=== PATIENT | female | born 1995 | race African-American/Black ===

== ENCOUNTER 2017-01-05 03:13 | Emergency (ER) | payer OTHER ==
[~2017-01-05 03:13] MED LIST: /ACETCOD2T PO; No Historical Meds; PRENTAB74 PO
[2017-01-05 05:08] LABS: MEAN CORPUSCULAR HEMOGLOBIN 29.9 pg (27.0-33.0); MEAN CORPUSCULAR HGB CONC 32.2 g/dl (32.0-36.5); MEAN CORPUSCULAR VOLUME 92.9 fl (80.0-96.0); RED CELL DISTRIBUTION WIDTH 14.2 % (11.5-14.5); WHITE BLOOD COUNT 9.3 K/mm3 (4.0-10.0)
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
[2017-01-05 05:21] LABS: AMPHETAMINES LEVEL URINE POSITIVE (NEGATIVE); BENZODIAZEPINES URINE NEGATIVE (NEGATIVE); COCAINE METABOLITE URINE NEGATIVE (NEGATIVE); CONTROL LINE INT CTR LINE PRESENT; METHADONE URINE NEGATIVE (NEGATIVE); OPIATES URINE NEGATIVE (NEGATIVE); TRICYCLIC ANTIDEPRESS URINE NEGATIVE (NEGATIVE)
[2017-01-05 05:27] LABS: CONTROL LINE HCG INT CTR LINE PRESENT
[2017-01-05 05:43] LABS: ALBUMIN 4.2 GM/DL (3.2-5.2); ALBUMIN/GLOBULIN RATIO 1.14 (1.00-1.93); ALKALINE PHOSPHATASE 80 U/L (45-117); ALT/SGPT 23 U/L (12-78); ANION GAP 9 MEQ/L (8-16); AST/SGOT 17 U/L (15-37); BILIRUBIN,DIRECT < 0.1 MG/DL (0.0-0.2); BILIRUBIN,TOTAL 0.2 MG/DL (0.2-1.0); BLOOD UREA NITROGEN 4 MG/DL (7-18); CALCIUM LEVEL 9.1 MG/DL (8.5-10.1); CARBON DIOXIDE LEVEL 26 MEQ/L (21-32); CHLORIDE LEVEL 111 MEQ/L (98-107); GLOMERULAR FILTRATION RATE > 60.0 (>60); GLUCOSE, FASTING 111 MG/DL (70-105); POTASSIUM SERUM 4.1 MEQ/L (3.5-5.1); SODIUM LEVEL 146 MEQ/L (136-145); TOTAL PROTEIN 7.9 GM/DL (6.4-8.2)
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
== END 2017-01-05 07:27 | disposition home or self-care (01) ==
LOC: M ED 03:13
DX: S00.83XA Contusion of other part of head, initial encounter (principal); W50.0XXA Accidental hit or strike by another person, initial encounter; Y92.410 Unspecified street and highway as the place of occurrence of the external cause; Y93.89 Activity, other specified; Y99.8 Other external cause status; F19.10 Other psychoactive substance abuse, uncomplicated; R45.851 Suicidal ideations; G93.0 Cerebral cysts; N83.209 Unspecified ovarian cyst, unspecified side; L30.9 Dermatitis, unspecified; Z88.6 Allergy status to analgesic agent; F17.210 Nicotine dependence, cigarettes, uncomplicated
CPT/HCPCS: 36415; 70450; 70486; 80048; 80076; 80306; 84443; 84703; 85027; 99284; G0480

== ENCOUNTER 2017-02-19 11:53 | Emergency (ER) | payer OTHER ==
[~2017-02-19] VITALS: Ht 170.2 cm; Wt 92.1 kg
[2017-02-19] MEDS ORDERED: ONDANSETRON 4 MG ORAL DISINTEGRATING TAB (S0181) PO ONE ×2 (14:30→15:45)
[2017-02-19] MEDS ORDERED: NAPR500T PO (15:32)
[2017-02-19] MEDS ORDERED: ZOFR4TAB3 PO (15:33)
[2017-02-19] MEDS ORDERED: NAPROXEN 250 MG TAB PO ONE (15:45)
[2017-02-19 15:47] VITALS: BP 123/61
== END 2017-02-19 16:04 | disposition home or self-care (01) ==
LOC: M ED 14:59
DX: R10.2 Pelvic and perineal pain (principal); R11.0 Nausea

== ENCOUNTER 2017-06-09 14:08 | Emergency (ER) | payer OTHER ==
[~2017-06-09] VITALS: Ht 170.2 cm; Wt 90.0 kg
[~2017-06-09 14:08] MED LIST changes: +NAPR500T PO; +ZOFR4TAB3 PO
[2017-06-09] MEDS ORDERED: TYLE325T5 PO (17:21)
[2017-06-09 19:27] VITALS: BP 125/52
== END 2017-06-09 19:46 | disposition home or self-care (01) ==
LOC: M ED 14:08
DX: O03.9 Complete or unspecified spontaneous abortion without complication (principal)

== ENCOUNTER → 2017-06-10 | Outpatient (REF) | payer OTHER ==
[~2017-06-10] MED LIST changes: +TYLE325T5 PO
== END ==
LOC: M LAB REF 17:29
PROVIDERS: ATTEND Advanced Practice Midwife
DX: O36.80X0 Pregnancy with inconclusive fetal viability, not applicable or unspecified (principal)

== ENCOUNTER → 2017-06-14 | Outpatient (REF) | payer OTHER | LOC: M LAB REF 13:04 | PROVIDERS: ATTEND Advanced Practice Midwife | DX: O20.0 Threatened abortion (principal) ==

== ENCOUNTER → 2017-07-11 | Outpatient (REF) | payer OTHER | LOC: M WHC 17:11 | PROVIDERS: ATTEND Advanced Practice Midwife | DX: O36.80X0 Pregnancy with inconclusive fetal viability, not applicable or unspecified (principal) ==

== ENCOUNTER → 2017-07-16 | Outpatient (REF) | payer OTHER | LOC: M LAB REF 16:39 | PROVIDERS: ATTEND Advanced Practice Midwife | DX: O36.80X0 Pregnancy with inconclusive fetal viability, not applicable or unspecified (principal) ==

== ENCOUNTER → 2017-08-14 | Outpatient (REF) | payer OTHER ==
[2017-08-14 13:38] LABS: MEAN CORPUSCULAR HEMOGLOBIN 32.4 pg (27.0-33.0); MEAN CORPUSCULAR HGB CONC 34.8 g/dl (32.0-36.5); MEAN CORPUSCULAR VOLUME 93.3 fl (80.0-96.0); RED CELL DISTRIBUTION WIDTH 12.8 % (11.5-14.5); WHITE BLOOD COUNT 10.8 K/mm3 (4.0-10.0)
[2017-08-14 14:01] LABS: HCG, SERUM QUANTITATIVE 56085 MIU/ML
[2017-08-14 14:08] LABS: HBsAg Prenatal NEGATIVE (NEGATIVE)
[2017-08-21 15:21] LABS: SUMMARY SEE SEPARATE REPORT
== END ==
LOC: M LAB REF 09:32
PROVIDERS: ATTEND Advanced Practice Midwife
DX: O36.80X0 Pregnancy with inconclusive fetal viability, not applicable or unspecified (principal)

== ENCOUNTER 2017-09-09 19:24 | Emergency (ER) | payer OTHER ==
[~2017-09-09] VITALS: Ht 170.2 cm; Wt 96.1 kg
[2017-09-09 21:24] LABS: BASO % 0.2 % (0.0-1.0); EOS # 0.1 10^3/uL (0.0-0.50); EOS % 0.7 % (0.0-3.0); IMMATURE GRANULOCYTE % 0.4 % (0-0); LYMPH % 20.1 % (24.0-44.0); MEAN CORPUSCULAR HEMOGLOBIN 31.2 pg (27.0-33.0); MEAN CORPUSCULAR HGB CONC 33.9 g/dl (32.0-36.5); MONO # 0.8 10^3/uL (0.0-0.8); MONO % 5.6 % (0.0-5.0); NEUTROPHILS # 10.8 10^3/uL (1.8-7.7); PLATELET COUNT, AUTOMATED 280 10^3/uL (150-450); RED CELL DISTRIBUTION WIDTH 13.7 % (11.5-14.5); WHITE BLOOD COUNT 14.8 10^3/uL (4.0-10.0)
[2017-09-09 22:09] LABS: ALBUMIN 3.5 GM/DL (3.2-5.2); ALBUMIN/GLOBULIN RATIO 0.97 (1.00-1.93); ALKALINE PHOSPHATASE 40 U/L (45-117); ALT/SGPT 13 U/L (12-78); ANION GAP 10 MEQ/L (8-16); AST/SGOT 7 U/L (15-37); BILIRUBIN,DIRECT < 0.1 MG/DL (0.0-0.2); BILIRUBIN,TOTAL 0.1 MG/DL (0.2-1.0); BLOOD UREA NITROGEN 8 MG/DL (7-18); CALCIUM LEVEL 8.9 MG/DL (8.5-10.1); CARBON DIOXIDE LEVEL 23 MEQ/L (21-32); CHLORIDE LEVEL 105 MEQ/L (98-107); CREATININE FOR GFR 0.51 MG/DL (0.55-1.02); FREE T4 0.92 NG/DL (0.76-1.46); GLOMERULAR FILTRATION RATE > 60.0 (>60); GLUCOSE, FASTING 90 MG/DL (70-105); MAGNESIUM LEVEL 2.2 MG/DL (1.8-2.4); POTASSIUM SERUM 4.1 MEQ/L (3.5-5.1); SODIUM LEVEL 138 MEQ/L (136-145); TOTAL PROTEIN 7.1 GM/DL (6.4-8.2)
[2017-09-09 23:47] VITALS: BP 153/83
--- NOTE | 2017-09-10 00:52 | REP ---
Clinical: Chest pain and shortness of breath . Comparison: 01/30/2013 . Technique: PA. Findings: The mediastinum and cardiac silhouette are normal. The lung moses are clear and without acute consolidation, effusion, or pneumothorax. The skeletal structures are intact and normal. Impression: 1. No acute cardiopulmonary process. Signed by Cirilo Awad MD 09/10/2017 12:44 A
--- NOTE | 2017-09-10 05:47 | ECGEPIP ---
Stationary ECG Study [facility] - ED Test Date: 2017-09-09 Pat Name: MARILYN MINER Department: Room: - Gender: F Carpenter Packing: : [id number] Requested By: LESLEE MENDENHALL Order Number: [id number] Reading MD: Mayco Gallagher Measurements Intervals [place] Rate: 79 P: 46 MI: 159 QRS: 64 QRSD: 83 T: 35 QT: 338 QTc: 388 Interpretive Statements SINUS RHYTHM NO PRIORS Electronically Signed On 09-10-2017 5:47:27 EDT by Mayco Gallagher
== END 2017-09-09 23:47 | disposition home or self-care (01) ==
LOC: M ED 19:24
DX: R00.2 Palpitations (principal); Z87.891 Personal history of nicotine dependence

== ENCOUNTER → 2017-12-25 | Outpatient (CLI) | payer OTHER ==
[2017-12-25 09:40] LABS: HEMATOCRIT 31.1 % (36.0-47.0); HEMOGLOBIN 10.2 g/dl (12.0-16.0); MEAN CORPUSCULAR HEMOGLOBIN 30.5 pg (27.0-33.0); MEAN CORPUSCULAR HGB CONC 32.8 g/dl (32.0-36.5); MEAN CORPUSCULAR VOLUME 93.1 fl (80.0-96.0); PLATELET COUNT, AUTOMATED 241 10^3/uL (150-450); RED BLOOD COUNT 3.34 10^6/uL (4.00-5.40); RED CELL DISTRIBUTION WIDTH 12.9 % (11.5-14.5); WHITE BLOOD COUNT 10.2 10^3/uL (4.0-10.0)
[2017-12-25 10:00] LABS: GLUCOSE CHALLENGE TEST 1 HOUR 95 MG/DL (LESS THAN 140)
[2017-12-26 08:55] LABS: AB SCREEN GEL MANUAL 1 1
== END ==
LOC: M LAB 08:21
DX: Z34.82 Encounter for supervision of other normal pregnancy, second trimester (principal); Z3A.25 25 weeks gestation of pregnancy; Z67.41 Type O blood, Rh negative
CPT/HCPCS: 82950

== ENCOUNTER → 2018-02-19 | Outpatient (REF) | payer OTHER | LOC: M LAB REF 12:45 | DX: Z34.83 Encounter for supervision of other normal pregnancy, third trimester (principal); Z3A.35 35 weeks gestation of pregnancy ==

== ENCOUNTER 2018-03-08 12:38 | Outpatient (CLI) | payer OTHER | END 2018-03-08 15:55 | disposition home or self-care (01) | LOC: M LDO 12:38 | DX: O47.1 False labor at or after 37 completed weeks of gestation (principal); Z3A.38 38 weeks gestation of pregnancy ==

== ENCOUNTER 2018-03-21 11:45 | Inpatient (IN) | payer OTHER ==
[2018-03-21 13:48] LABS: HEMATOCRIT 29.8 % (36.0-47.0); MEAN CORPUSCULAR HEMOGLOBIN 28.9 pg (27.0-33.0); MEAN CORPUSCULAR HGB CONC 33.6 g/dl (32.0-36.5); MEAN CORPUSCULAR VOLUME 86.1 fl (80.0-96.0); PLATELET COUNT, AUTOMATED 258 10^3/uL (150-450); RED BLOOD COUNT 3.46 10^6/uL (4.00-5.40); RED CELL DISTRIBUTION WIDTH 14.7 % (11.5-14.5); WHITE BLOOD COUNT 12.4 10^3/uL (4.0-10.0)
[2018-03-21] MEDS: LACTATED RINGER'S 1000 ML IV (13:56)
[2018-03-21] MEDS: LR 1,000 ML IV (13:56)
[2018-03-21 14:39] LABS: AMPHETAMINES URINE REFLEX NEGATIVE (NEGATIVE); BARBITURATES URINE REFLEX NEGATIVE (NEGATIVE); BENZODIAZEPINES URINE REFLEX NEGATIVE (NEGATIVE); CANNABINOIDS URINE REFLEX NEGATIVE (NEGATIVE); COCAINE METABOLITE URINE REFLE NEGATIVE (NEGATIVE); METHADONE URINE REFLEX NEGATIVE (NEGATIVE); OPIATES URINE REFLEX NEGATIVE (NEGATIVE); PHENCYCLIDINE URINE REFLEX NEGATIVE (NEGATIVE)
[2018-03-21] MEDS ORDERED: OXYTOCIN 30 UNITS IN 0.9% NaCl 500ML IV BAG (J2590) As Ordered (14:51)
[2018-03-21] MEDS ORDERED: FENTANYL 2MCG/ML ROPIVACAINE 0.2% IN 0.9% NACL 200ML IVBAG As Ordered (16:05)
[2018-03-21] MEDS ORDERED: EPIDURAL COMMENT XX (17:30)
[2018-03-21] MEDS ORDERED: ePHEDrine SULFATE 25 MG/5 ML(5MG/ML) SYRINGE IV (17:30)
[2018-03-21] MEDS ORDERED: FENTANYL/ROPIVACAINE/NACL BAG 200 ML EPIDURAL (17:30)
[2018-03-21] MEDS ORDERED: diphenhydrAMINE INJ 50MG/ML VIAL (J1200) IV (17:30)
[2018-03-21] MEDS ORDERED: NALOXONE INJ 0.4 MG/1 ML VIAL (J2310) IV (17:30)
[2018-03-21] MEDS ORDERED: LACTATED RINGER'S 1000 ML IV (17:30)
[2018-03-21] MEDS ORDERED: REFRIGERATOR IV KEYS XX (17:30)
[2018-03-21] MEDS ORDERED: EPIDURAL/PCA KEYS XX (17:30)
[2018-03-21] MEDS ORDERED: ONDANSETRON 4MG/2ML VIAL (J2405) IV (17:30)
[2018-03-21] MEDS: OXYTOCIN DRIP 30 UNITS in APPROPRIATE DILUENT 1 EA IV ×2 (17:34→18:38)
[2018-03-21] MEDS ORDERED: DIBUCAINE 1% OINTMENT 30GM TOP (18:45)
[2018-03-21] MEDS ORDERED: ANUSOL HC CREAM 30GM TOP (18:45)
[2018-03-21] MEDS ORDERED: METHYLERGONOVINE MALEATE 0.2 MG TAB PO (18:45)
[2018-03-21] MEDS ORDERED: DOCUSATE SODIUM 100 MG CAP PO (18:45)
[2018-03-21] MEDS: MEASLES,MUMPS,RUBELLA VACCINE INJ (MMR-II) (90707) SC (18:49)
[2018-03-21] MEDS: IBUPROFEN 800 MG TAB PO (23:54)
[2018-03-22] MEDS: IBUPROFEN 800 MG TAB PO ×2 (08:05→21:08)
[2018-03-22] MEDS: PRENATAL VITAMINS CHEWABLE TABLET PO (08:05)
[2018-03-22 15:06] LABS: FETAL SCREEN PROF. 1 1
[2018-03-22] MEDS: ACETAMINOPHEN 500 MG TAB PO (15:25)
[2018-03-22] MEDS: RHOGAM 300 MCG (1500 IU) INJ (J2790) IM (15:26)
[2018-03-23] MEDS: IBUPROFEN 800 MG TAB PO (07:49)
[2018-03-23] MEDS: PRENATAL VITAMINS CHEWABLE TABLET PO (07:49)
== END 2018-03-23 12:40 | disposition home or self-care (01) | DRG 560 ==
LOC: M LDO 11:45 → M LDI 11:51 → M OBS 20:30
PROVIDERS: Obstetrics & Gynecology
PROC: 10E0XZZ Delivery of Products of Conception, External Approach (ICD-10-PCS; principal; 2018-03-21)
PROC: 10907ZC Drainage of Amniotic Fluid, Therapeutic from Products of Conception, Via Natural or Artificial Opening (ICD-10-PCS; 2018-03-21)
DX: O48.0 Post-term pregnancy (principal); Z3A.40 40 weeks gestation of pregnancy; Z37.0 Single live birth

== ENCOUNTER 2018-05-11 11:56 | Emergency (ER) | payer OTHER ==
[2018-05-11] MEDS: ACETAMINOPHEN 325 MG TAB PO (12:29)
== END 2018-05-11 13:44 | disposition home or self-care (01) ==
LOC: M ED 11:56
DX: S06.0X0A Concussion without loss of consciousness, initial encounter (principal); S00.91XA Abrasion of unspecified part of head, initial encounter; S10.91XA Abrasion of unspecified part of neck, initial encounter; S40.021A Contusion of right upper arm, initial encounter; S40.022A Contusion of left upper arm, initial encounter; Y04.8XXA Assault by other bodily force, initial encounter; Y92.098 Other place in other non-institutional residence as the place of occurrence of the external cause; J45.909 Unspecified asthma, uncomplicated; F32.9 Major depressive disorder, single episode, unspecified; G40.89 Other seizures; F17.210 Nicotine dependence, cigarettes, uncomplicated
CPT/HCPCS: 70450

== ENCOUNTER → 2018-05-15 | Outpatient (REF) | payer OTHER, MEDICAID ==
[2018-05-15 12:25] LABS: BASO % 0.4 % (0.0-1.0); EOS # 0.1 10^3/uL (0.0-0.50); HEMATOCRIT 35.3 % (36.0-47.0); HEMOGLOBIN 11.4 g/dl (12.0-15.5); IMMATURE GRANULOCYTE % 0.1 % (0-3.0); LYMPH # 1.7 10^3/uL (1.5-6.5); LYMPH % 24.4 % (24.0-44.0); MEAN CORPUSCULAR HEMOGLOBIN 28.9 pg (27.0-33.0); MEAN CORPUSCULAR HGB CONC 32.3 g/dl (32.0-36.5); MEAN CORPUSCULAR VOLUME 89.4 fl (80.0-96.0); MONO # 0.4 10^3/uL (0.0-0.8); NEUTROPHILS # 4.8 10^3/uL (1.8-7.7); NEUTROPHILS % 67.1 % (36.0-66.0); PLATELET COUNT, AUTOMATED 295 10^3/uL (150-450); RED BLOOD COUNT 3.95 10^6/uL (4.00-5.40); RED CELL DISTRIBUTION WIDTH 15.9 % (11.5-14.5); WHITE BLOOD COUNT 7.1 10^3/uL (4.0-10.0)
[2018-05-15 12:44] LABS: ALBUMIN 3.8 GM/DL (3.2-5.2); ALBUMIN/GLOBULIN RATIO 1.19 (1.00-1.93); ALKALINE PHOSPHATASE 65 U/L (45-117); ALT/SGPT 63 U/L (12-78); ANION GAP 8 MEQ/L (8-16); AST/SGOT 30 U/L (7-37); BILIRUBIN,TOTAL 0.2 MG/DL (0.2-1.0); BLOOD UREA NITROGEN 7 MG/DL (7-18); CALCIUM LEVEL 8.8 MG/DL (8.5-10.1); CARBON DIOXIDE LEVEL 26 MEQ/L (21-32); CHLORIDE LEVEL 109 MEQ/L (98-107); CHOLESTEROL LEVEL 157 MG/DL (<200); CHOLESTEROL RISK RATIO 2.854 (<5); CREATININE FOR GFR 0.77 MG/DL (0.55-1.30); GLOMERULAR FILTRATION RATE > 60.0 (>60); GLUCOSE, FASTING 99 MG/DL (70-100); HDL CHOLESTEROL 55 MG/DL (>40); LDL CHOLESTEROL 80.8 MG/DL (<100); NON-HDL-C 102 MG/DL; POTASSIUM SERUM 4.1 MEQ/L (3.5-5.1); SODIUM LEVEL 143 MEQ/L (136-145); THYROID STIMULATING HORMONE 0.632 uIU/ML (0.358-3.740); TRIGLYCERIDES LEVEL 106 MG/DL (<150)
== END ==
LOC: M LAB REF 11:42
DX: Z13.220 Encounter for screening for lipoid disorders (principal); Z13.228 Encounter for screening for other metabolic disorders; R45.89 Other symptoms and signs involving emotional state

== ENCOUNTER 2018-11-02 15:32 | Emergency (ER) | payer OTHER, SELFPAY, MEDICAID | END 2018-11-02 16:15 | disposition home or self-care (01) | LOC: M ED 15:32 | DX: M54.9 Dorsalgia, unspecified (principal); G40.A09 Absence epileptic syndrome, not intractable, without status epilepticus | CPT/HCPCS: 81025 ==

== ENCOUNTER 2018-11-12 10:24 | Emergency (ER) | payer OTHER, SELFPAY ==
[2018-11-12 11:13] LABS: KETONE, URINE AUTO RFX NEGATIVE (NEGATIVE); LEUKOCYTE ESTERASE UR AUTO RFX 1+ (NEGATIVE); MUCUS, URINE RFX SMALL (NEGATIVE); NITRITE, URINE AUTO RFX NEGATIVE (NEGATIVE); RBC, URINE AUTO RFX 2 /HPF (0-3); SQUAM EPITHELIAL CELL UR AURFX 2 /HPF (0-6); WBC, URINE AUTO RFX 2 /HPF (0-3)
[2018-11-12 13:01] LABS: HCG, SERUM QUANTITATIVE 3046 MIU/ML
[2018-11-12 13:51] LABS: CHLAMYDIA DNA AMPLIFICATION NEGATIVE (NEGATIVE); GC DNA AMPLIFICATION POSITIVE (NEGATIVE)
[2018-11-12 14:35] LABS: FETAL SCREEN PROF. 1
[2018-11-12] MEDS: RHOGAM 300 MCG (1500 IU) INJ (J2790) IM (15:01)
== END 2018-11-12 15:20 | disposition home or self-care (01) ==
LOC: M ED 10:24
DX: O20.0 Threatened abortion (principal); Z3A.01 Less than 8 weeks gestation of pregnancy
CPT/HCPCS: 76801

== ENCOUNTER → 2018-11-13 | Outpatient (REF) | payer OTHER ==
[2018-11-13 18:54] LABS: HCG, SERUM QUANTITATIVE 5194 MIU/ML
== END ==
LOC: M LAB REF 16:58
DX: O36.80X0 Pregnancy with inconclusive fetal viability, not applicable or unspecified (principal)
CPT/HCPCS: 84702

== ENCOUNTER → 2018-12-11 | Outpatient (REF) | payer OTHER ==
[~2018-12-11] MED LIST changes: +BENA25CA4 PO; +CYCL10TA PO; +IBUP-1022 PO; +IBUP-1114 PO; +MAPA500T2 PO; +NAPR-50 PO; -NAPR500T PO; +ROBA500T PO; +ZOFR4TAB14 PO; -ZOFR4TAB3 PO
[2018-12-11 17:52] LABS: HEMATOCRIT 35.8 % (36.0-47.0); HEMOGLOBIN 11.8 g/dl (12.0-15.5); MEAN CORPUSCULAR HEMOGLOBIN 31.2 pg (27.0-33.0); MEAN CORPUSCULAR VOLUME 94.7 fl (80.0-96.0); PLATELET COUNT, AUTOMATED 286 10^3/uL (150-450); RED BLOOD COUNT 3.78 10^6/uL (4.00-5.40); WHITE BLOOD COUNT 13.7 10^3/uL (4.0-10.0)
[2018-12-12 10:44] LABS: HEPATITIS C VIRUS ABY INDEX 0.1 INDEX (<0.8); HIV 1&2 SCREEN CENTAUR NEGATIVE (NEGATIVE); RUBELLA IgG QUALITATIVE IMMUNE (IMMUNE)
== END ==
LOC: M LAB REF 16:47
PROVIDERS: ATTEND Obstetrics & Gynecology
DX: Z34.81 Encounter for supervision of other normal pregnancy, first trimester (principal)

== ENCOUNTER 2019-04-26 10:17 | Emergency (ER) | payer OTHER ==
[~2019-04-26] VITALS: Ht 170.2 cm; Wt 94.8 kg
[~2019-04-26 10:17] MED LIST changes: -/ACETCOD2T PO; +ACET1TAB15 PO; -NAPR-50 PO; +NAPR-837 PO
[2019-04-26 11:58] LABS: INFLUENZA A AMPLIFICATION NEGATIVE (NEGATIVE); INFLUENZA B AMPLIFICATION NEGATIVE (NEGATIVE)
[2019-04-26 12:23] VITALS: BP 127/58
== END 2019-04-26 12:24 | disposition home or self-care (01) ==
LOC: M ED 10:17
DX: O98.513 Other viral diseases complicating pregnancy, third trimester (principal); O99.343 Other mental disorders complicating pregnancy, third trimester; Z3A.29 29 weeks gestation of pregnancy

== ENCOUNTER → 2019-06-03 | Outpatient (CLI) | payer OTHER ==
[2019-06-03 11:34] LABS: HEMATOCRIT 29.6 % (36.0-47.0); HEMOGLOBIN 9.6 g/dl (12.0-15.5); MEAN CORPUSCULAR HEMOGLOBIN 29.6 pg (27.0-33.0); MEAN CORPUSCULAR HGB CONC 32.4 g/dl (32.0-36.5); MEAN CORPUSCULAR VOLUME 91.4 fl (80.0-96.0); PLATELET COUNT, AUTOMATED 266 10^3/uL (150-450); RED BLOOD COUNT 3.24 10^6/uL (4.00-5.40); WHITE BLOOD COUNT 13.9 10^3/uL (4.0-10.0)
== END ==
LOC: M LAB 09:57
PROVIDERS: ATTEND Advanced Practice Midwife
DX: Z34.83 Encounter for supervision of other normal pregnancy, third trimester (principal); Z3A.00 Weeks of gestation of pregnancy not specified
CPT/HCPCS: 36415; 82950; 85027; 86850; 86900; 86901; J2790

== ENCOUNTER → 2019-06-16 | Outpatient (CLI) | payer OTHER ==
--- NOTE | 2019-06-16 15:37 | REP ---
Obstetric sonography: History: Supervision of . growth study. OMEGA. Third trimester. Findings: Scanning through the gravid uterus demonstrates a viable single intrauterine gestation in a cephalic lie. motion is observed and heart rate is recorded at 130 beats per minute. A grade 1 to 2 anterior placenta is seen without evidence of previa or abruption. Amniotic fluid is subjectively normal. Closed cervical length is measured transabdominally at 3.4 cm. No extrauterine abnormality is observed. The following anatomic structures are identified today and felt to be unremarkable: cranium, choroid plexus, cavum, face and profile, lungs, diaphragm, left-sided stomach, three-vessel cord, kidneys and bladder. spine, four-chamber heart, and cerebellum and posterior fossa were less than optimally seen due to position. Biometry chart: BPD 8.6 cm = 34 weeks 4 days Head circumference 31.7 cm = 35 weeks 4 days Abdominal circumference 31.1 cm = 35 weeks 0 days Femur length 7.0 cm = 35 weeks 5 days Humeral length 6.2 cm = 35 weeks 5 days HC/AC ratio normal 1.02. Cephalic index normal 0.75. Estimated weight 2619 grams, 5 pounds 12 ounces, 28 percentile for 36 weeks 5 days. OMEGA normal 16.1 cm. S/D ratio in the umbilical cord artery normal 2.22. Impression: Viable single intrauterine gestation at 35 weeks 2 days by today's composite sonographic criteria. JOSE by today's sonography July 19, 2019. Electronically Signed by Martín Reich MD 06/16/2019 04:56 P
== END ==
LOC: M RAD 13:33
PROVIDERS: ATTEND Advanced Practice Midwife
DX: O26.843 Uterine size-date discrepancy, third trimester (principal); Z3A.36 36 weeks gestation of pregnancy

== ENCOUNTER → 2019-06-17 | Outpatient (REF) | payer OTHER | LOC: M LAB REF 18:03 | PROVIDERS: ATTEND Advanced Practice Midwife | DX: Z34.83 Encounter for supervision of other normal pregnancy, third trimester (principal) ==

== ENCOUNTER 2019-07-04 11:55 | Inpatient (IN) | payer OTHER ==
[2019-07-04] VITALS (23 sets, daily range): BP systolic 110–139; BP diastolic 55–82
[~2019-07-04] VITALS: Ht 170.2 cm; Wt 101.5 kg
[2019-07-04] MEDS ORDERED: LACTATED RINGER'S 1000 ML IV STA ×2 (13:10→13:47)
[2019-07-04 13:54] LABS: HEMATOCRIT 29.8 % (36.0-47.0); MEAN CORPUSCULAR HGB CONC 33.6 g/dl (32.0-36.5); MEAN CORPUSCULAR VOLUME 89.5 fl (80.0-96.0); PLATELET COUNT, AUTOMATED 230 10^3/uL (150-450); RED BLOOD COUNT 3.33 10^6/uL (4.00-5.40); WHITE BLOOD COUNT 13.1 10^3/uL (4.0-10.0)
[2019-07-04] MEDS: LR 1,000 ML IV SCH ×2 (13:56→17:16)
[2019-07-04] MEDS ORDERED: FENTANYL 2MCG/ML ROPIVACAINE 0.2% IN 0.9% NACL 100ML IVBAG As Ordered ONE (14:50)
[2019-07-04] MEDS ORDERED: diphenhydrAMINE INJ 50MG/ML VIAL (J1200) IV PRN (15:30)
[2019-07-04] MEDS ORDERED: LACTATED RINGER'S 1000 ML IV PRN (15:30)
[2019-07-04] MEDS ORDERED: REFRIGERATOR IV KEYS XX PRN (15:30)
[2019-07-04] MEDS ORDERED: NALOXONE INJ 0.4 MG/1 ML VIAL (J2310) IV PRN (15:30)
[2019-07-04] MEDS ORDERED: EPIDURAL/PCA KEYS XX PRN (15:30)
[2019-07-04] MEDS ORDERED: FENTANYL/ROPIVACAINE/NACL BAG 100 ML EPIDURAL SCH (15:30)
[2019-07-04] MEDS ORDERED: EPIDURAL COMMENT XX SCH (15:30)
[2019-07-04] MEDS ORDERED: ONDANSETRON 4MG/2ML VIAL (J2405) IV PRN (15:30)
[2019-07-04] MEDS ORDERED: ePHEDrine SULFATE 25 MG/5 ML(5MG/ML) SYRINGE IV PRN (15:30)
[2019-07-04] MEDS ORDERED: OXYTOCIN 30 UNITS IN 0.9% NaCl 500ML IV BAG (J2590) As Ordered ONE (15:45)
[2019-07-04] MEDS ORDERED: OXYTOCIN DRIP 30 UNITS in APPROPRIATE DILUENT 1 EA IV SCH (17:58)
[2019-07-04] MEDS ORDERED: RHOGAM 300 MCG (1500 IU) INJ (J2790) IM SCH (18:00)
[2019-07-04] MEDS ORDERED: DIBUCAINE 1% OINTMENT 30GM TOP PRN (18:00)
[2019-07-04] MEDS ORDERED: MEASLES,MUMPS,RUBELLA VACCINE INJ (MMR-II) (90707) SC SCH (18:00)
[2019-07-04] MEDS ORDERED: METHYLERGONOVINE MALEATE 0.2 MG TAB PO PRN (18:00)
[2019-07-04] MEDS ORDERED: ACETAMINOPHEN TAB 650MG DOSE (2X325MG) PO PRN (18:00)
[2019-07-04] MEDS ORDERED: IBUPROFEN 600 MG TAB PO PRN (18:00)
[2019-07-04 18:06] LABS: CORD GAS HCO3 V 19.3 MEQ/L; CORD GAS O2 SAT V 87.9 %; CORD GAS PCO2 V 33.8 mmHg; CORD GAS PH V 7.374 UNITS; CORD GAS PO2 V 42.1 mmHg; CORD GAS SBC V 20.2 MEQ/L; CORD GAS TCO2 V 20.3 MEQ/L
[2019-07-04 18:09] LABS: CORD GAS HCO3 A 22.1 MEQ/L; CORD GAS O2 SAT A 73.2 %; CORD GAS PCO2 A 48.6 mmHg; CORD GAS PH A 7.276 UNITS; CORD GAS PO2 A 32.8 mmHg; CORD GAS SBC A 19.8 MEQ/L; CORD GAS TCO2 A 23.6 MEQ/L
[2019-07-04] MEDS ORDERED: SLF 3 ML SYR IV PRN (19:00)
[2019-07-04] MEDS: IBUPROFEN 800 MG TAB PO PRN (19:35)
[2019-07-04] MEDS: DOCUSATE SODIUM 100 MG CAP PO SCH (21:00)
[2019-07-04] MEDS: SLF 3 ML SYR IV SCH (22:03)
[2019-07-04] MEDS: ACETAMINOPHEN 500 MG TAB PO PRN (22:43)
[2019-07-05] MEDS: IBUPROFEN 800 MG TAB PO PRN ×3 (03:57→22:17)
[2019-07-05] MEDS: SLF 3 ML SYR IV SCH ×3 (05:17→20:37)
[2019-07-05 06:00] VITALS: BP 103/52
[2019-07-05] MEDS: DOCUSATE SODIUM 100 MG CAP PO SCH ×2 (07:35→20:37)
[2019-07-05] MEDS: ACETAMINOPHEN 500 MG TAB PO PRN ×2 (07:35→17:24)
[2019-07-05] MEDS: PRENATAL VITAMINS CHEWABLE TABLET PO SCH (07:36)
--- NOTE | 2019-07-05 13:44 | DN ---
DATE OF DELIVERY: 07/04/2019 Lizeth is a 23-year-old female 6, para 2-0-3-2 who was admitted in labor. She progressed to fully dilated, delivered a live male in occiput posterior position with a nuchal cord times one. scores 9 and 9. weight 6 pounds 15 ounces. Placenta delivered spontaneously intact. Three-vessel cord. Perineum, vagina and cervix inspected. No laceration noted. Estimated blood loss 250 mL. Both mother and baby in stable condition.
[2019-07-05 18:00] VITALS: BP 105/54
[2019-07-06] MEDS: ACETAMINOPHEN 500 MG TAB PO PRN (05:50)
[2019-07-06] MEDS: SLF 3 ML SYR IV SCH (05:51)
[2019-07-06 06:26] VITALS: BP 123/57
[2019-07-06] MEDS: PRENATAL VITAMINS CHEWABLE TABLET PO SCH (07:57)
[2019-07-06] MEDS: DOCUSATE SODIUM 100 MG CAP PO SCH (07:58)
[2019-07-06] MEDS ORDERED: IBUP80TA PO (10:05)
[2019-07-06] MEDS: IBUPROFEN 800 MG TAB PO PRN (10:36)
== END 2019-07-06 11:55 | disposition home or self-care (01) | DRG 560 ==
LOC: M LDO 11:55 → M LDI 13:05 → M OBS 20:27
PROVIDERS: ADMIT Obstetrics & Gynecology; ATTEND Obstetrics & Gynecology
PROC: 10E0XZZ Delivery of Products of Conception, External Approach (ICD-10-PCS; principal; 2019-07-04)
DX: O69.81X0 Labor and delivery complicated by cord around neck, without compression, not applicable or unspecified (principal); Z37.0 Single live birth; Z3A.39 39 weeks gestation of pregnancy

== ENCOUNTER 2019-09-12 21:21 | Emergency (ER) | payer OTHER ==
[~2019-09-12] VITALS: Ht 170.2 cm; Wt 95.0 kg
[~2019-09-12 21:21] MED LIST changes: +IBUP80TA PO
[2019-09-12] MEDS ORDERED: BUPR150T5 PO (21:41)
[2019-09-12] MEDS ORDERED: NORG1TAB4 PO (21:41)
[2019-09-12 23:15] VITALS: BP 123/69
== END 2019-09-12 23:20 | disposition home or self-care (01) ==
LOC: M ED 21:21
DX: Z02.9 Encounter for administrative examinations, unspecified (principal); F53.0 Postpartum depression; F41.9 Anxiety disorder, unspecified; F17.200 Nicotine dependence, unspecified, uncomplicated; Z79.899 Other long term (current) drug therapy

== ENCOUNTER 2019-11-02 14:17 | Inpatient (IN) | payer MEDICAID, OTHER ==
[~2019-11-02] VITALS: Ht 170.2 cm; Wt 95.4 kg
[~2019-11-02 14:17] MED LIST changes: +BUPR150T5 PO; +NORG1TAB4 PO
[2019-11-02 16:47] LABS: HEMATOCRIT 37.7 % (36.0-47.0); HEMOGLOBIN 12.3 g/dl (12.0-15.5); MEAN CORPUSCULAR HEMOGLOBIN 30.1 pg (27.0-33.0); MEAN CORPUSCULAR HGB CONC 32.6 g/dl (32.0-36.5); MEAN CORPUSCULAR VOLUME 92.2 fl (80.0-96.0); PLATELET COUNT, AUTOMATED 286 10^3/uL (150-450); RED BLOOD COUNT 4.09 10^6/uL (4.00-5.40); WHITE BLOOD COUNT 9.3 10^3/uL (4.0-10.0)
[2019-11-02 17:17] LABS: HCG, SERUM QUALITATIVE NEGATIVE (NEGATIVE)
[2019-11-02 17:26] LABS: ACETAMINOPHEN LEVEL < 2.0 UG/ML (10.0-30.0); ALBUMIN 3.5 GM/DL (3.2-5.2); ALT/SGPT 47 U/L (12-78); BILIRUBIN,DIRECT 0.1 MG/DL (0.0-0.2); BILIRUBIN,TOTAL 0.2 MG/DL (0.2-1.0); BLOOD UREA NITROGEN 7 MG/DL (7-18); CALCIUM LEVEL 8.4 MG/DL (8.5-10.1); CARBON DIOXIDE LEVEL 25 MEQ/L (21-32); CHLORIDE LEVEL 109 MEQ/L (98-107); CREATININE FOR GFR 0.66 MG/DL (0.55-1.30); ETHYL ALCOHOL (ETHANOL) < 0.003 % (0.000-0.010); GLOMERULAR FILTRATION RATE > 60.0 (>60); GLUCOSE, FASTING 80 MG/DL (70-100); POTASSIUM SERUM 4.4 MEQ/L (3.5-5.1); SODIUM LEVEL 139 MEQ/L (136-145); THYROID STIMULATING HORMONE 0.434 uIU/ML (0.358-3.740); TOTAL PROTEIN 6.9 GM/DL (6.4-8.2)
[2019-11-02 19:48] LABS: AMPHETAMINES LEVEL URINE NEGATIVE (NEGATIVE); BARBITURATES URINE NEGATIVE (NEGATIVE); BENZODIAZEPINES URINE POSITIVE (NEGATIVE); CANNABINOIDS URINE NEGATIVE (NEGATIVE); COCAINE METABOLITE URINE NEGATIVE (NEGATIVE); METHADONE URINE NEGATIVE (NEGATIVE); OPIATES URINE POSITIVE (NEGATIVE); PHENCYCLIDINE URINE NEGATIVE (NEGATIVE)
[2019-11-02] MEDS ORDERED: MAALOX 30 ML SUSP *UDC PO PRN (22:15)
[2019-11-02] MEDS ORDERED: MOM 30ML SUSPENSION UDC PO PRN (22:15)
[2019-11-02] MEDS ORDERED: ACETAMINOPHEN TAB 650MG DOSE (2X325MG) PO PRN (22:15)
[2019-11-02] MEDS ORDERED: traZODone 50 MG TAB PO PRN (22:15)
[2019-11-03 01:13] VITALS: BP 142/84
[2019-11-03 06:25] VITALS: BP 126/65
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
--- NOTE | 2019-11-03 16:14 | MHDSPDOC ---
[facility] Discharge Summary Discharge Summary DATE OF ADMISSION: Nov 02, 2019 at 22:08 DATE OF DISCHARGE: 11/03/19 Please see h/p for same day discharge, discussion and clinical course Vital Signs/I&Os Vital Signs Date Time Temp Pulse Resp B/P (MAP) Pulse Ox O2 Delivery O2 Flow Rate FiO2 11/03/19 08:25 Room Air 11/03/19 06:25 98.4 79 14 126/65 (85) 11/02/19 19:30 99 Laboratory Data Labs 24H Laboratory Tests 2 11/02/19 16:21: Nucleated Red Blood Cells % (auto) 0.0, Anion Gap 5L, Glomerular Filtration Rate > 60.0, Calcium Level 8.4L, Total Bilirubin 0.2, Direct Bilirubin 0.1, Aspartate Amino Transf (AST/SGOT) 37, Alanine Aminotransferase (ALT/SGPT) 47, Alkaline Phosphatase 65, Total Protein 6.9, Albumin 3.5, Albumin/Globulin Ratio 1.03, Thyroid Stimulating Hormone (TSH) 0.434, Human Chorionic Gonadotropin, Qual NEGATIVE, Salicylates Level 3.0L, Urine Opiates Screen POSITIVEH, Urine Methadone Screen NEGATIVE, Acetaminophen Level < 2.0L, Urine Barbiturates Screen NEGATIVE, Urine Phencyclidine Screen NEGATIVE, Urine Amphetamines Screen NEGATIVE, Urine Benzodiazepines Screen POSITIVEH, Urine Cocaine Metabolite Screen NEGATIVE, Urine Cannabinoids Screen NEGATIVE, Ethyl Alcohol Level < 0.003 CBC/BMP Laboratory Tests 11/02/19 16:21 Medications Scheduled Bupropion Hcl (Bupropion HCl Sr) 150 Mg Tab.sr.12h, 1 TAB PO BID, (Reported) Allergies Coded Allergies: No Known Allergies (Unverified , 04/26/19) MICHAEL RODRIGUES DO Nov 03, 2019 16:14
[2019-11-03 17:36] VITALS: BP 127/83
--- NOTE | 2019-11-03 19:37 | HPEPDOC ---
General Date of Admission Nov 02, 2019 at 22:08 Date of Service: Nov 03, 2019 Attending Physician: MAIRA VÁZQUEZ MD Chief Complaint The patient is a 23-year-old female admitted with a reason for visit of Unspecified Depressive Disorder. Source: Patient Exam Limitations: No limitations Timing/Duration: Day(s) Severity: Severe Associated Symptoms: Other (Depressed mood, with SI) History of Present Illness 23 yo W with a history of depression, prior suicide attempt in 2011 with acetaminophen, recent psychosocial strive with a recent CPS case that results in her losing all 3 of her children including the 3 month old baby and this precipitated severe depression and suicidal ideation that she expressed to family and was therefore brought into the hospital for evaluation. She otherwise reported having recent binge drunk and did "oxy" a few days prior to admission. She otherwise smokes, has recently been drinking excessively, sometimes abuses prescription pain medications but otherwise denies any other illicit drug use or recent consumption. She is admitted into the [facility] and medicine is consulted for physical evaluation. Home Medications Scheduled Bupropion Hcl (Bupropion HCl Sr) 150 Mg Tab.sr.12h, 1 TAB PO BID, (Reported) Allergies Coded Allergies: No Known Allergies (Unverified , 04/26/19) Past Medical History Medical History Depression Prescription opioid therapy abuse Alcohol use disorder Prior suicide attempt Family History Significant Family History: No pertinent family hx Social History * Smoker: current smoker Alcohol: heavy Drugs: prescription drugs Recent Travel/Sick Contacts: Denies: Recent travel, Recent sick contacts Psychosocial History: Depression A-FIB/CHADSVASC A-FIB History Current/History of A-Fib/PAF?: No Age/Risk Factor Scoring CHADSVASC: CHADSVASC Response (Comments) Value Age Risk Factor Age < 65 years old 0 Gender Risk Factor Female 1 Hx of CHF No 0 Hx of HTN No 0 Hx of Stroke/TIA/or VTE No 0 Hx of Diabetes No 0 Hx of Vascular Disease No 0 Total 1 Treatment Treatment ordered: NONE Reason Anticoagulant not given: Not indicated/[id number] Review of Systems Constitutional: Denies: Chills, Fever, Night Sweats Eyes: Denies: Pain, Vision change ENT: Denies: Head Aches, Ear Pain, Dysphagia Skin: Denies: Rash, Lesions, Breakdown Pulmonary: Denies: Dyspnea, Cough Cardiovascular: Denies: Chest Pain, Palpitations, Orthopnea, Paroxysmal Noc. Dyspnea, Lt Headedness Gastrointestinal: Denies: Nausea, Vomiting, Abdominal Pain, Diarrhea Genitourinary: Denies: Dysuria, Frequency, Incontinence, Retention Hematologic: Denies: Bruising, Bleeding Excessively Endocrine: Denies: Polydipsia, Polyphagia, Polyuria, Heat Intolerance, Cold Intolerance, Other Endocrine Sx Musculoskeletal: Denies: Neck Pain, Back Pain, Joint Pain, Muscle Pain, Spasms Neurological: Denies: Weakness, Numbness, Change in speech, Confusion Psych: Reports: Depression, Thoughts of Self Harm Physical Examination General Exam: Positive: Alert, No Acute Distress Eye Exam: Positive: PERRLA, Conjunctiva & lids normal, EOMI; Negative: Sclera icteric ENT Exam: Positive: Atraumatic, Mucous membr. moist/pink, Pharynx Normal Neck Exam: Positive: Supple; Negative: JVD, thyromegaly Chest Exam: Positive: Clear to auscultation, Normal air movement Heart Exam: Positive: Rate Normal, Regular Rhythm, Normal S1, Normal S2; Negative: Murmurs, Rubs Telemetry: Positive: No significant arrhythmia Abdomen Exam: Positive: Normal bowel sounds, Soft; Negative: Tenderness, Hepatospenomegaly Extremity Exam: Positive: Normal pulses; Negative: Clubbing, Cyanosis, Edema Skin Exam: Positive: Nl turgor and temperature; Negative: Breakdown, Lesion Neuro Exam: Positive: Normal Gait, Normal Speech, Cranial Nerves 3-12 NL, R eflexes 2+ Psych Exam: Positive: Mental status NL, Mood NL, Oriented x 3 Vital Signs Vital Signs Date Time Temp Pulse Resp B/P (MAP) Pulse Ox O2 Delivery O2 Flow Rate FiO2 11/03/19 17:36 96.8 79 79 127/83 (98) 11/03/19 08:25 Room Air 11/02/19 19:30 99 Assessment/Plan 23 yo woman with a history of depression and prior remote suicide attempt who is admitted to the [facility] with severe depression and suicidal ideation in the setting of recent loss of her children to [facility] for whom medicine is consulted for physical evaluation without any evidence of acute illness with lab evaluation all within normal limits. At this time I will defer psychiatric evaluation and treatment to the psychiatry team and sign off. Plan / VTE VTE Prophylaxis Ordered?: No VTE Exclusion Mechanical Proph: Low Risk for VTE VTE Exclusion Pharmacological: At Low Risk for VTE MAIRA VÁZQUEZ MD Nov 03, 2019 19:37
[2019-11-03] MEDS ORDERED: buPROPion **SR TABLET** (ZYBAN) 150MG PO SCH (21:00)
[2019-11-04 06:08] VITALS: BP 118/63
== END 2019-11-04 07:03 | disposition home or self-care (01) | DRG 754 ==
LOC: M ED 14:17 → M ED INP 22:08 → M PSY 11-03 01:05
PROVIDERS: ADMIT Psychiatry & Neurology Psychiatry; ATTEND Psychiatry & Neurology Addiction Medicine
DX: F32.9 Major depressive disorder, single episode, unspecified (principal); F17.200 Nicotine dependence, unspecified, uncomplicated; F11.90 Opioid use, unspecified, uncomplicated; F10.10 Alcohol abuse, uncomplicated

== ENCOUNTER → 2019-11-06 | Outpatient (CLI) | payer OTHER, MEDICAID | LOC: M LRY 15:33 | DX: Z53.9 Procedure and treatment not carried out, unspecified reason (principal) ==

== ENCOUNTER 2019-11-20 14:09 | Day surgery (SDC) | payer OTHER ==
[~2019-11-20] VITALS: Ht 170.2 cm; Wt 93.9 kg
[~2019-11-20 14:09] MED LIST changes: +BUPIVACAINE HCL 0.25% 30 ML VIAL As Ordered ONE; +KETOROLAC 60 MG/2 ML VIAL (J1885) As Ordered ONE; +LIDOCAINE 2% INJ 100 MG/5 ML SDV (FOR ANES.) As Ordered ONE; +MIDAZOLAM INJ 2 MG/2 ML VIAL (J2250) As Ordered ONE; +ONDANSETRON 4MG/2ML VIAL (J2405) As Ordered ONE; +PROPOFOL 200 MG/20 ML VIAL As Ordered ONE; +ROCURONIUM BROMIDE 50 MG/5 ML VIAL As Ordered ONE; +dexameTHASONE 4 MG/ML 1ML VIAL (J1100) As Ordered ONE; +fentaNYL 100 MCG/2 ML INJECTION (J3010) As Ordered ONE
[2019-11-20 14:47] LABS: HEMATOCRIT 41.2 % (36.0-47.0); HEMOGLOBIN 13.3 g/dl (12.0-15.5); MEAN CORPUSCULAR HEMOGLOBIN 30.4 pg (27.0-33.0); MEAN CORPUSCULAR HGB CONC 32.3 g/dl (32.0-36.5); MEAN CORPUSCULAR VOLUME 94.3 fl (80.0-96.0); PLATELET COUNT, AUTOMATED 325 10^3/uL (150-450); RED BLOOD COUNT 4.37 10^6/uL (4.00-5.40); WHITE BLOOD COUNT 9.4 10^3/uL (4.0-10.0)
[2019-11-20] MEDS ORDERED: LR 1,000 ML IV ONE (15:00)
[2019-11-20 15:13] LABS: HCG, SERUM QUALITATIVE NEGATIVE (NEGATIVE)
[2019-11-20] MEDS ORDERED: fentaNYL 100 MCG/2 ML INJECTION (J3010) As Ordered ONE (16:11)
[2019-11-20] MEDS ORDERED: METOCLOPRAMIDE INJ 10MG/2ML VIAL (J2765) IV PRN (17:15)
[2019-11-20] MEDS ORDERED: PERCOCET 5MG/325MG TAB PO PRN (17:15)
[2019-11-20] MEDS ORDERED: LR 1,000 ML IV SCH ×2 (17:15)
[2019-11-20] MEDS ORDERED: fentaNYL 100 MCG/2 ML INJECTION (J3010) IV PRN (17:15)
[2019-11-20] MEDS ORDERED: ONDANSETRON 4MG/2ML VIAL (J2405) IV PRN (17:15)
[2019-11-20] MEDS ORDERED: OXYC1TAB23 PO (17:45)
[2019-11-20] MEDS ORDERED: oxyCODONE 5MG TAB As Ordered ONE (17:46)
[2019-11-20] MEDS ORDERED: IBUP80TA PO (17:47)
[2019-11-20] MEDS ORDERED: oxyCODONE 5MG TAB PO ONE (18:00)
[2019-11-20 19:00] VITALS: BP 142/71
== END 2019-11-20 19:05 | disposition home or self-care (01) ==
LOC: M SDC 14:09
PROVIDERS: ATTEND Obstetrics & Gynecology
DX: Z30.2 Encounter for sterilization (principal); D64.9 Anemia, unspecified; F41.9 Anxiety disorder, unspecified; F32.9 Major depressive disorder, single episode, unspecified; L30.9 Dermatitis, unspecified; Z91.5 Personal history of self-harm; F17.210 Nicotine dependence, cigarettes, uncomplicated; Z79.899 Other long term (current) drug therapy; Z86.69 Personal history of other diseases of the nervous system and sense organs
CPT/HCPCS: 58661; 84703; 85027; 86850; 86900; 86901; 88302; J1100; J1885; J2250; J2405; J3010

== ENCOUNTER → 2020-07-27 | Outpatient (CLI) | payer MEDICAID ==
[~2020-07-27] MED LIST changes: -BUPIVACAINE HCL 0.25% 30 ML VIAL As Ordered ONE; +CYCL-707 PO; -CYCL10TA PO; -KETOROLAC 60 MG/2 ML VIAL (J1885) As Ordered ONE; -LIDOCAINE 2% INJ 100 MG/5 ML SDV (FOR ANES.) As Ordered ONE; -MIDAZOLAM INJ 2 MG/2 ML VIAL (J2250) As Ordered ONE; -ONDANSETRON 4MG/2ML VIAL (J2405) As Ordered ONE; +OXYC1TAB23 PO; -PROPOFOL 200 MG/20 ML VIAL As Ordered ONE; -ROCURONIUM BROMIDE 50 MG/5 ML VIAL As Ordered ONE; -dexameTHASONE 4 MG/ML 1ML VIAL (J1100) As Ordered ONE; -fentaNYL 100 MCG/2 ML INJECTION (J3010) As Ordered ONE
== END ==
LOC: M OUTALCOH 07:58
PROVIDERS: ATTEND Psychiatry & Neurology Addiction Medicine
DX: Z13.39 Encounter for screening examination for other mental health and behavioral disorders (principal); F17.200 Nicotine dependence, unspecified, uncomplicated; F10.10 Alcohol abuse, uncomplicated

== ENCOUNTER 2020-07-29 10:25 | Outpatient (RCR) | payer MEDICAID | END 2020-08-01 | LOC: M OUTALCOH 10:25 | PROVIDERS: ATTEND Psychiatry & Neurology Addiction Medicine | DX: F12.20 Cannabis dependence, uncomplicated (principal); F17.200 Nicotine dependence, unspecified, uncomplicated ==

== ENCOUNTER 2020-08-30 15:00 | Outpatient (RCR) | payer MEDICAID | END 2020-08-31 | LOC: M OUTALCOH 15:00 | PROVIDERS: ATTEND Psychiatry & Neurology Addiction Medicine | DX: F12.20 Cannabis dependence, uncomplicated (principal); F17.200 Nicotine dependence, unspecified, uncomplicated ==

== ENCOUNTER 2020-09-27 14:47 | Outpatient (RCR) | payer MEDICAID | END 2020-10-01 | LOC: M OUTALCOH 14:47 | PROVIDERS: ATTEND Psychiatry & Neurology Addiction Medicine | DX: F12.20 Cannabis dependence, uncomplicated (principal); F17.200 Nicotine dependence, unspecified, uncomplicated ==

== ENCOUNTER → 2020-10-31 | Outpatient (RCR) | payer MEDICAID | LOC: M OUTALCOH 10-03 13:14 | PROVIDERS: ATTEND Psychiatry & Neurology Addiction Medicine | DX: F12.20 Cannabis dependence, uncomplicated (principal); F17.200 Nicotine dependence, unspecified, uncomplicated ==

== ENCOUNTER 2020-11-22 13:43 | Emergency (ER) | payer MEDICAID, OTHER ==
[~2020-11-22] VITALS: Ht 170.2 cm; Wt 104.5 kg
[2020-11-22] MEDS ORDERED: NORCO, ANEXSIA 5/325MG TABLET (HYDROcodone/ACETAMINOPHEN) PO ONE (14:00)
--- NOTE | 2020-11-22 14:38 | REP ---
INDICATION: r/o splenomegaly COMPARISON: None. TECHNIQUE: Real time pike scale ultrasound examination using curved array transducer. FINDINGS: Ultrasound of the left upper quadrant demonstrates normal appearing spleen measuring 8.7 x 2.6 x 7.5 cm (splenic index 170). Normal left kidney without hydronephrosis measures 11.0 x 5.6 x 4.8 cm. No ascites in the left upper quadrant. IMPRESSION: Normal left upper quadrant. No splenomegaly. <Electronically signed by Cirilo Awad > 11/22/20 [id number]
[2020-11-22] MEDS ORDERED: PEPT262S PO (14:51)
[2020-11-22] MEDS ORDERED: ACET25TA12 PO (14:52)
[2020-11-22 15:32] LABS: INR 0.87
[2020-11-22 15:42] LABS: HCG, SERUM QUALITATIVE NEGATIVE (NEGATIVE)
[2020-11-22 16:05] LABS: HEMATOCRIT 38.6 % (36.0-47.0); HEMOGLOBIN 11.9 g/dl (12.0-15.5); MEAN CORPUSCULAR HEMOGLOBIN 28.1 pg (27.0-33.0); MEAN CORPUSCULAR HGB CONC 30.8 g/dl (32.0-36.5); PLATELET COUNT, AUTOMATED 312 10^3/uL (150-450); RED BLOOD COUNT 4.24 10^6/uL (4.00-5.40); WHITE BLOOD COUNT 10.4 10^3/uL (4.0-10.0)
[2020-11-22 16:35] LABS: ALBUMIN 3.9 GM/DL (3.2-5.2); ALT/SGPT 37 U/L (12-78); BILIRUBIN,TOTAL 0.4 MG/DL (0.2-1.0); BLOOD UREA NITROGEN 5 MG/DL (7-18); C REACTIVE PROTEIN QUANTITATIV 0.33 MG/DL (0.00-0.30); CALCIUM LEVEL 8.6 MG/DL (8.5-10.1); CARBON DIOXIDE LEVEL 24 MEQ/L (21-32); CHLORIDE LEVEL 112 MEQ/L (98-107); CK-MB VALUE MASS 10.3 NG/ML (<3.6); CPK CREATINE PHOSPHOKINASE 2127 U/L (26-192); CREATININE FOR GFR 0.84 MG/DL (0.55-1.30); GLOMERULAR FILTRATION RATE > 60.0 (>60); GLUCOSE, FASTING 93 MG/DL (70-100); HEPATITIS A ANTIBODY IGM NEGATIVE (NEGATIVE); HEPATITIS B CORE ANTIBODY IGM NEGATIVE (NEGATIVE); HEPATITIS B SURFACE ANTIGEN NEGATIVE (NEGATIVE); HEPATITIS C VIRUS ABY INDEX 0.1 INDEX (<0.8); IRON (FE) 84 UG/DL (50-170); MB/CK RELATIVE INDEX 0.48 (< OR =4); POTASSIUM SERUM 4.5 MEQ/L (3.5-5.1); SODIUM LEVEL 141 MEQ/L (136-145); TOTAL PROTEIN 7.3 GM/DL (6.4-8.2); TROPONIN I < 0.02 NG/ML (< 0.10)
[2020-11-22 16:36] LABS: ERYTHROCYTE SEDIMENTATION RATE 12 mm/hr (0-20)
[2020-11-22] MEDS ORDERED: NS 1,000 ML IV ONE (16:45)
[2020-11-22] MEDS ORDERED: NORC1TAB7 PO ×2 (16:49→16:52)
[2020-11-22 19:05] VITALS: BP 130/67
== END 2020-11-22 19:04 | disposition home or self-care (01) ==
LOC: M ED 13:43 → EDBD 13:43 → M ED 19:04
DX: D69.0 Allergic purpura (principal)

== ENCOUNTER 2020-11-28 10:00 | Outpatient (RCR) | payer MEDICAID ==
[~2020-11-28 10:00] MED LIST changes: +ACET25TA12 PO; +NORC1TAB7 PO; +PEPT262S PO
== END 2020-12-01 ==
LOC: M OUTALCOH 10:00
PROVIDERS: ATTEND Psychiatry & Neurology Addiction Medicine
DX: F12.20 Cannabis dependence, uncomplicated (principal); F17.200 Nicotine dependence, unspecified, uncomplicated

== ENCOUNTER 2020-11-29 12:43 | Outpatient (CLI) | payer OTHER ==
--- NOTE | 2020-11-29 13:23 | REP ---
INDICATION: PAIN IN RIGHT LOWER LIMB. COMPARISON: None. TECHNIQUE: Right lower extremity duplex venous ultrasound. FINDINGS: The deep veins are anechoic and fully compressible from the groin to the popliteal fossa in the right lower extremity. Color flow imaging is homogeneous. Spectral Doppler interrogation demonstrates intact respiratory variation in flow and normal manual augmentation of flow. There is no evidence of deep vein thrombosis. IMPRESSION: Negative right lower extremity duplex venous ultrasound. No evidence of deep vein thrombosis. <Electronically signed by Vincent Reich > 11/29/20 [id number]
== END 2020-12-17 12:45 | disposition home or self-care (01) ==
LOC: M RAD 12:43
PROVIDERS: ATTEND Physician Assistant
DX: R22.41 Localized swelling, mass and lump, right lower limb (principal)

== ENCOUNTER → 2020-11-30 | Outpatient (REF) | payer OTHER ==
[2020-11-30 12:20] LABS: HEMATOCRIT 37.8 % (36.0-47.0); HEMOGLOBIN 11.7 g/dl (12.0-15.5); MEAN CORPUSCULAR HEMOGLOBIN 28.8 pg (27.0-33.0); MEAN CORPUSCULAR VOLUME 93.1 fl (80.0-96.0); PLATELET COUNT, AUTOMATED 342 10^3/uL (150-450); RED BLOOD COUNT 4.06 10^6/uL (4.00-5.40); WHITE BLOOD COUNT 8.8 10^3/uL (4.0-10.0)
[2020-11-30 12:39] LABS: ALBUMIN 3.9 GM/DL (3.2-5.2); ALT/SGPT 21 U/L (12-78); BILIRUBIN,TOTAL 0.2 MG/DL (0.2-1.0); BLOOD UREA NITROGEN 8 MG/DL (7-18); CALCIUM LEVEL 8.9 MG/DL (8.5-10.1); CARBON DIOXIDE LEVEL 24 MEQ/L (21-32); CHLORIDE LEVEL 110 MEQ/L (98-107); CK-MB VALUE MASS 1.2 NG/ML (<3.6); CPK CREATINE PHOSPHOKINASE 180 U/L (26-192); CREATININE FOR GFR 0.81 MG/DL (0.55-1.30); GLOMERULAR FILTRATION RATE > 60.0 (>60); GLUCOSE, FASTING 90 MG/DL (70-100); MB/CK RELATIVE INDEX 0.67 (< OR =4); POTASSIUM SERUM 4.3 MEQ/L (3.5-5.1); SODIUM LEVEL 142 MEQ/L (136-145); TOTAL PROTEIN 7.3 GM/DL (6.4-8.2)
[2020-11-30 12:52] LABS: ERYTHROCYTE SEDIMENTATION RATE 14 mm/hr (0-20)
== END ==
LOC: M LAB REF 11:32
PROVIDERS: ATTEND Physician Assistant
DX: M79.604 Pain in right leg (principal)

== ENCOUNTER 2020-12-16 13:00 | Outpatient (RCR) | payer MEDICAID | END 2021-01-01 | LOC: M OUTALCOH 13:00 | PROVIDERS: ATTEND Psychiatry & Neurology Addiction Medicine | DX: F12.20 Cannabis dependence, uncomplicated (principal); F17.200 Nicotine dependence, unspecified, uncomplicated ==